=== PATIENT | male | born 1975 ===

== ENCOUNTER 2021-07-29 10:53 | Inpatient (IN) | payer MEDICARE, MEDICAID ==
[~2021-07-29] VITALS: Ht 175.3 cm; Wt 116.1 kg
[2021-07-29] MEDS ORDERED: INDOMETHACIN 25 MG CAP PO ONE (11:15)
[2021-07-29 11:35] LABS: Basophils # (auto) 0.1 10 ^3/uL (0-0.2); Basophils % (auto) 0.4 % (0.0-2.0); Eosinophils # (auto) 0.1 10 ^3/uL (0-0.8); Eosinophils % (auto) 0.3 % (0.0-7.0); Hematocrit 32.3 % (41.0-53.0); Hemoglobin 10.6 g/dL (13.5-17.5); Lymphocytes # (auto) 1.2 10 ^3/uL (0.4-5.4); Lymphocytes % (auto) 5.8 % (10.0-50.0); Mean Corpuscular Hgb Conc. 32.7 g/dL (32.0-36.0); Mean Corpuscular Volume 88.6 fL (80.0-100.0); Monocytes # (auto) 2.2 10 ^3/uL (0-1.3); Monocytes % (auto) 10.4 % (0.0-12.0); Neutrophils # (auto) 17.6 10 ^3/uL (1.6-8.6); Neutrophils % (auto) 83.1 % (37.0-80.0); Red Blood Cells 3.65 10^6/uL (4.5-5.90); Red Cell Distribution Width 13.3 % (11.8-14.3); White Blood Cell 21.1 10^3/uL (4.4-10.8)
[2021-07-29] MEDS ORDERED: KETOROLAC TROMETH 30 MG/ML 1ML VIAL IV ONE (12:00)
[2021-07-29 12:03] LABS: Albumin 2.6 g/dL (3.4-5.0); Calcium 9.7 mg/dL (8.5-10.1); Uric Acid 5.5 mg/dL (3.5-7.2)
[2021-07-29 12:06] LABS: Bilirubin, Total 1.2 mg/dL (0.2-1.0)
[2021-07-29] MEDS ORDERED: SODIUM CHLORIDE 0.9% 1,000 ML IV ONE ×2 (12:45)
[2021-07-29] MEDS ORDERED: cefTRIAXone 1GM/50ML D5W 50 ML IV ONE ×2 (13:00→15:00)
[2021-07-29] MEDS ORDERED: MORPHINE SULFATE INJECTION 2 MG/ML SYRG IV PRN ×2 (14:30→17:30)
[2021-07-29] MEDS ORDERED: NITROGLYCERIN 0.4 MG SL TAB SL PRN (14:30)
[2021-07-29] MEDS ORDERED: methylPREDNISolone SOD SUCC 125 MG/2 ML VL IV ONE (14:45)
[2021-07-29] MEDS ORDERED: VANCOMYCIN PER PHARMACY 0 MG IV SCH (15:00)
[2021-07-29] MEDS ORDERED: VANCOMYCIN 1GM/250ML 250 ML IV ONE (15:30)
[2021-07-29] MEDS ORDERED: PANTOPRAZOLE 40 MG/10 ML VIAL INJ IV ONE (17:15)
[2021-07-29] MEDS ORDERED: IPRATROPIUM BROM 0.5 MG/2.5ML INH SOL NEB ONE (17:30)
[2021-07-29] MEDS ORDERED: HYDROcodone-ACET 5/325MG TAB PO PRN (17:30)
[2021-07-29] MEDS ORDERED: ONDANSETRON HCL 4 MG/2 ML VIAL IV PRN (17:30)
[2021-07-29] MEDS ORDERED: DOCUSATE SOD 100 MG CAP PO PRN (17:30)
[2021-07-29] MEDS ORDERED: HYDROcodone-ACET 5/325MG TAB PO ONE (17:30)
[2021-07-29] MEDS: methylPREDNISolone SOD SUCC 40 MG/ML VL IV SCH (18:00)
[2021-07-29] MEDS ORDERED: IPRATROPIUM BROM 0.5 MG/2.5ML INH SOL NEB SCH (18:00)
[2021-07-29 18:11] VITALS: BP 147/98
[2021-07-29] MEDS ORDERED: COLCHICINE 0.6 MG CAP PO ONE (18:45)
[2021-07-29] MEDS: ATORVASTATIN 20 MG TAB PO SCH (20:57)
[2021-07-29 22:00] VITALS: BP 148/99
[2021-07-29] MEDS: KETOROLAC TROMETH 30 MG/ML 1ML VIAL IV PRN (22:19)
[2021-07-29 22:28] LABS: Uric Acid 5.7 mg/dL (3.5-7.2)
[2021-07-29 22:32] LABS: INR 1.03 (0.9-1.15); Partial Thromboplastin Time 29.9 sec (23.6-33.0)
[2021-07-29] MEDS: LORazepam 0.5 MG TAB PO PRN (22:40)
[2021-07-30] MEDS: methylPREDNISolone SOD SUCC 40 MG/ML VL IV SCH ×4 (00:26→21:21)
[2021-07-30] MEDS: SODIUM CHLORIDE 0.9% 1,000 ML IV SCH ×3 (01:29→21:22)
[2021-07-30] MEDS: hydrALAZINE HCL 20 MG/ML VL IV PRN (04:16)
[2021-07-30 05:00] VITALS: BP 147/103
[2021-07-30] MEDS: VANCOMYCIN 1GM/250ML 250 ML IV SCH ×2 (05:04→17:00)
[2021-07-30 06:55] LABS: Basophils # (auto) 0 10 ^3/uL (0-0.2); Basophils % (auto) 0.1 % (0.0-2.0); Eosinophils # (auto) 0 10 ^3/uL (0-0.8); Hemoglobin 9.7 g/dL (13.5-17.5); Red Cell Distribution Width 13.3 % (11.8-14.3)
[2021-07-30 07:01] LABS: Hematocrit 29.6 % (41.0-53.0); Lymphocytes # (auto) 0.6 10 ^3/uL (0.4-5.4); Lymphocytes % (auto) 3.6 % (10.0-50.0); Mean Corpuscular Hemoglobin 29.3 pg (28.0-32.0); Mean Corpuscular Hgb Conc. 32.8 g/dL (32.0-36.0); Mean Corpuscular Volume 89.2 fL (80.0-100.0); Monocytes # (auto) 0.7 10 ^3/uL (0-1.3); Monocytes % (auto) 3.8 % (0.0-12.0); Neutrophils # (auto) 16.4 10 ^3/uL (1.6-8.6); Neutrophils % (auto) 92.5 % (37.0-80.0); Red Blood Cells 3.32 10^6/uL (4.5-5.90); White Blood Cell 17.8 10^3/uL (4.4-10.8)
[2021-07-30 07:10] LABS: Albumin 2.2 g/dL (3.4-5.0); Anion Gap 7 (5-15); Blood Urea Nitrogen 32 mg/dL (7-18); Calcium 8.9 mg/dL (8.5-10.1); Carbon Dioxide 22 mmol/L (21-32); Chloride 104 mmol/L (98-107); Glucose 250 mg/dL (74-106); Sodium 133 mmol/L (136-145)
[2021-07-30 07:18] LABS: Alanine Aminotransferase 105 U/L (16-61); Alkaline Phosphatase 159 U/L (45-117); Aspartate Aminotransferase 33 U/L (15-37); BUN/Creatinine Ratio 22.9; Bilirubin, Total 0.6 mg/dL (0.2-1.0); Cholesterol 126 mg/dL (< 200); GFR African American 70 mL/min; GFR Non-African American 58 mL/min; HDL Cholesterol 18 mg/dL (40-59); LDL Cholesterol 79 mg/dL (< 100); Triglycerides 121 mg/dL (< 150); Uric Acid 5.3 mg/dL (3.5-7.2)
[2021-07-30 07:20] LABS: INR 1.03 (0.9-1.15); Partial Thromboplastin Time 30.2 sec (23.6-33.0)
[2021-07-30 07:23] LABS: CRP High Sensitivity > 19.0 mg/dL (< 0.3)
[2021-07-30 09:00] VITALS: BP 149/92
[2021-07-30] MEDS: COLCHICINE 0.6 MG CAP PO SCH ×2 (10:00→21:21)
[2021-07-30] MEDS: CEFTRIAXONE SODIUM 2 GM in D5W 5% 50 ML IV SCH (10:00)
[2021-07-30] MEDS: ENOXAPARIN SOD 40 MG/0.4 ML SYRINGE SC SCH (10:00)
[2021-07-30] MEDS: ALLOPURINOL 100 MG TAB PO SCH (10:00)
[2021-07-30] MEDS: PANTOPRAZOLE 40 MG/10 ML VIAL INJ IV SCH (10:00)
[2021-07-30 12:29] VITALS: BP 104/62
[2021-07-30 12:32] VITALS: BP 144/95
[2021-07-30 16:51] VITALS: BP 159/93
[2021-07-30] MEDS ORDERED: FUROSEMIDE 40 MG TAB PO ONE (18:30)
[2021-07-30] MEDS: ATORVASTATIN 20 MG TAB PO SCH (21:21)
[2021-07-30 22:00] VITALS: BP 136/90
[2021-07-31] MEDS: LORazepam 0.5 MG TAB PO PRN ×2 (00:01→21:57)
[2021-07-31] MEDS: ENOXAPARIN SOD 40 MG/0.4 ML SYRINGE SC SCH (01:00)
[2021-07-31 05:00] VITALS: BP 166/104
[2021-07-31] MEDS: hydrALAZINE HCL 20 MG/ML VL IV PRN (05:22)
[2021-07-31] MEDS: KETOROLAC TROMETH 30 MG/ML 1ML VIAL IV PRN ×3 (05:23→21:57)
[2021-07-31] MEDS: VANCOMYCIN 1GM/250ML 250 ML IV SCH (06:51)
[2021-07-31 09:00] VITALS: BP 134/89
[2021-07-31] MEDS: SODIUM CHLORIDE 0.9% 1,000 ML IV SCH ×2 (09:15→22:35)
[2021-07-31] MEDS: ALLOPURINOL 100 MG TAB PO SCH (10:00)
[2021-07-31] MEDS: methylPREDNISolone SOD SUCC 40 MG/ML VL IV SCH ×2 (10:00→21:55)
[2021-07-31] MEDS: CEFTRIAXONE SODIUM 2 GM in D5W 5% 50 ML IV SCH (10:00)
[2021-07-31] MEDS: PANTOPRAZOLE 40 MG/10 ML VIAL INJ IV SCH (10:00)
[2021-07-31] MEDS: COLCHICINE 0.6 MG CAP PO SCH ×2 (10:00→21:55)
[2021-07-31] MEDS ORDERED: ETOMIDATE (2MG/ML) 20ML VIAL IV ONE (10:50)
[2021-07-31 12:43] VITALS: BP 152/97
[2021-07-31] MEDS ORDERED: cefTRIAXone 1GM/50ML D5W 100 ML IV ONE (14:13)
[2021-07-31 14:53] LABS: Hepatitis A Ab IgM Negative
[2021-07-31 14:55] LABS: Hepatitis B Core IgM Negative
[2021-07-31 15:04] LABS: Hepatitis C Antibody Negative (Negative)
[2021-07-31 16:37] VITALS: BP 160/94
[2021-07-31] MEDS: ATORVASTATIN 20 MG TAB PO SCH (21:56)
[2021-07-31 22:00] VITALS: BP 149/88
[2021-07-31] MEDS ORDERED: VANCOMYCIN 1GM/250ML 250 ML IV SCH (23:00)
[2021-08-01] MEDS: hydrALAZINE HCL 20 MG/ML VL IV PRN (04:28)
[2021-08-01 05:00] VITALS: BP_SYST 154; BP_SYST 97; BP_DIAS 54; BP_DIAS 96
[2021-08-01 08:44] VITALS: BP 153/95
[2021-08-01] MEDS ORDERED: cefTRIAXone 1GM/50ML D5W 100 ML IV ONE (09:02)
[2021-08-01] MEDS ORDERED: LEVO500T31 PO (10:33)
[2021-08-01] MEDS ORDERED: ALL300T PO (10:36)
[2021-08-01] MEDS ORDERED: PRED10TA PO (10:36)
[2021-08-01] MEDS ORDERED: HYDR-4798 PO (10:36)
[2021-08-01] MEDS ORDERED: COLC1TAB3 PO (10:36)
[2021-08-01 11:52] VITALS: BP 154/96
[2021-08-01 12:56] VITALS: BP 156/101
[2021-08-01] MEDS ORDERED: VANCOMYCIN 1GM/250ML 250 ML IV SCH (23:00)
== END 2021-08-01 16:34 | disposition home or self-care (01) | DRG 871 ==
LOC: EDBD 10:53 → ER 10:53 → OVERFLOW 14:16 → WEST WING 17:09
PROVIDERS: ADMIT Hospitalist; ATTEND Family Medicine
DX: A41.9 Sepsis, unspecified organism (principal); E43 Unspecified severe protein-calorie malnutrition; M00.9 Pyogenic arthritis, unspecified; K80.20 Calculus of gallbladder without cholecystitis without obstruction; I12.9 Hypertensive chronic kidney disease with stage 1 through stage 4 chronic kidney disease, or unspecified chronic kidney disease; E66.01 Morbid (severe) obesity due to excess calories; E78.5 Hyperlipidemia, unspecified; N18.9 Chronic kidney disease, unspecified; M06.9 Rheumatoid arthritis, unspecified; M10.9 Gout, unspecified; R79.89 Other specified abnormal findings of blood chemistry; Z20.822 Contact with and (suspected) exposure to COVID-19; Z68.36 Body mass index [BMI] 36.0-36.9, adult; Z91.19 Patient's noncompliance with other medical treatment and regimen
CPT/HCPCS: 36415; 71275; 76705; 76881; 80053; 80061; 80074; 80202; 82565; 82728; 83036; 83605; 83690; 83735; 83880; 84100; 84443; 84484; 84550; 85025; 85379; 85610; 85652; 85730; 86141; 87040; 87070; 87086; 87205; 87426; 93005; 93970; 96365; 96367; 96375; C9113; G0378; J0696; J1885; J7060